=== PATIENT | male | born 1970 | race Caucasian/White ===

== ENCOUNTER 2024-01-20 14:21 | Outpatient (CLI) | payer OTHER, SELFPAY ==
[2024-01-20 22:38] LABS: Creatinine Urine 50.5 mg/dL
[2024-01-20 22:40] LABS: Microalbumin Creatinine Ratio 10 mg/g (0-30); Microalbumin Urine 1 mg/dL
== END 2024-01-20 14:22 | disposition home or self-care (01) ==
PROVIDERS: Visit Provider Family Medicine
DX: E11.9 Type 2 diabetes mellitus without complications (principal); E78.2 Mixed hyperlipidemia; I10 Essential (primary) hypertension; R53.83 Other fatigue; Z12.5 Encounter for screening for malignant neoplasm of prostate
CPT/HCPCS: 80048; 80061; 82043; 82570; 84460; 85025; G0103

== ENCOUNTER 2025-01-24 14:00 | Outpatient (CLI) | payer OTHER, SELFPAY | END 2025-01-24 14:01 | disposition home or self-care (01) | PROVIDERS: PCP Family Medicine; Visit Provider Family Medicine | DX: I10 Essential (primary) hypertension (principal); E78.2 Mixed hyperlipidemia; N52.9 Male erectile dysfunction, unspecified | CPT/HCPCS: 80048; 80061; 84460; G0103 ==